=== PATIENT | male | born 1945 | race Caucasian/White ===

== ENCOUNTER 2025-07-13 17:13 | Inpatient (IN) | payer MEDICARE ==
[2025-07-13 18:58] LABS: #Basophils Less than 0.03 10x3/uL (0.0-0.2); #Eosinophils Less than 0.03 10x3/uL (0.0-0.5); #Monocytes 0.60 10x3/uL (0.0-1.1); #Neutrophils 7.90 10x3/uL (1.5-8.4); %Basophils 0.1 % (0.0-2.0); %Eosinophils 0.0 % (0.0-6.0); %Lymphocytes 7.9 % (18.0-47.0); %Monocytes 6.5 % (0.0-10.0); %Neutrophils 85.1 % (40.0-75.0); Hematocrit 34.9 % (38.8-50.0); Hemoglobin 12.1 g/dL (13.5-17.5); Mean Corpuscular Hemoglobin 32.7 pg (27.0-33.0); Mean Corpuscular Volume 94.3 fL (81.2-95.1); Platelet Count 392 10x3/uL (150-450); Red Blood Cell (RBC) Count 3.70 10x6/uL (4.32-5.72); White Blood Cell (WBC) Count 9.28 10x3/uL (3.5-10.5)
[2025-07-13 19:19] LABS: ALT (SGPT) 10 U/L (Less than 45); AST (SGOT) 22 U/L (11-34); Albumin 2.6 g/dL (3.1-4.5); Alkaline Phosphatase 78 U/L (40-110); Anion Gap 11 mmol/L (10-20); BUN (Urea Nitrogen) 25 mg/dL (8.4-25.7); Bilirubin, Total 1.8 mg/dL (0.3-1.2); Calc. Creatinine Clearance 0 mL/min (70-130); Calcium 8.5 mg/dL (7.8-10.44); Carbon Dioxide 31 mmol/L (23-31); Chloride 91 mmol/L (98-107); Globulin 4.3 g/dL (2.4-3.5); Glucose 109 mg/dL (83-110); Potassium 3.8 mmol/L (3.5-5.1); Sodium 129 mmol/L (136-145)
[2025-07-13] MEDS ORDERED: Furosemide 40 MG (4 mL) VIAL ONE (19:41)
[2025-07-13] MEDS ORDERED: Calcium Carbonate 500 MG ChewTAB PO PRN (19:56)
[2025-07-13] MEDS ORDERED: Ondansetron PF 4 MG/2 ML Vial IVP PRN (19:56)
[2025-07-13] MEDS ORDERED: Acetaminophen 325 MG TAB PO PRN (19:56)
[2025-07-13] MEDS ORDERED: Senokot S 8.6-50 MG TAB PO PRN (19:56)
[2025-07-13] MEDS ORDERED: Melatonin 3 MG TAB PO PRN (19:56)
[2025-07-13 20:38] LABS: Troponin I 0.067 ng/mL (< 0.028)
[2025-07-13 22:56] LABS: Troponin I 0.069 ng/mL (< 0.028)
[2025-07-13 23:29] LABS: Magnesium 2.1 mg/dL (1.6-2.6)
[2025-07-13] MEDS: Furosemide 20 MG (2 mL) VIAL SLOW IVP SCH (23:47)
[2025-07-14] MEDS: cefTRIAXone\\ROCEPHIN 1 GM in Sodium Chloride 0.9% 100 ML IVPB SCH (03:25)
[2025-07-14 03:49] LABS: #Basophils Less than 0.03 10x3/uL (0.0-0.2); #Eosinophils Less than 0.03 10x3/uL (0.0-0.5); #Monocytes 0.66 10x3/uL (0.0-1.1); #Neutrophils 8.84 10x3/uL (1.5-8.4); %Basophils 0.0 % (0.0-2.0); %Eosinophils 0.1 % (0.0-6.0); %Lymphocytes 8.1 % (18.0-47.0); %Monocytes 6.4 % (0.0-10.0); %Neutrophils 85.0 % (40.0-75.0); Hematocrit 36.6 % (38.8-50.0); Hemoglobin 12.8 g/dL (13.5-17.5); Mean Corpuscular Hemoglobin 32.9 pg (27.0-33.0); Mean Corpuscular Volume 94.1 fL (81.2-95.1); Platelet Count 392 10x3/uL (150-450); Red Blood Cell (RBC) Count 3.89 10x6/uL (4.32-5.72); White Blood Cell (WBC) Count 10.39 10x3/uL (3.5-10.5)
[2025-07-14 04:07] LABS: Anion Gap 15 mmol/L (10-20); BUN (Urea Nitrogen) 21 mg/dL (8.4-25.7); Calc. Creatinine Clearance 81 mL/min (70-130); Calcium 8.4 mg/dL (7.8-10.44); Carbon Dioxide 27 mmol/L (23-31); Chloride 92 mmol/L (98-107); Glucose 90 mg/dL (83-110); Potassium 2.9 mmol/L (3.5-5.1); Sodium 131 mmol/L (136-145)
[2025-07-14] MEDS ORDERED: Electrolyte Replacement Protocol 1 EACH FS PRN (06:53)
[2025-07-14] MEDS ORDERED: Azithromycin 250 MG TAB PO SCH (09:00)
[2025-07-14] MEDS: Losartan 25 MG TAB PO SCH (09:23)
[2025-07-14] MEDS: Metoprolol Succinate XL 25 MG ER.TAB PO SCH (09:24)
[2025-07-14] MEDS: Aspirin 81 mg Enteric Coated Tablet PO SCH (09:24)
[2025-07-14] MEDS: Enoxaparin 40 MG (0.4 mL) SYRINGE SC SCH (09:24)
[2025-07-14] MEDS: Furosemide 40 MG (4 mL) VIAL SLOW IVP SCH (09:25)
[2025-07-14] MEDS: Potassium Bicarbonate/Cit Ac 20 MEQ TAB PO SCH ×2 (09:45→17:54)
[2025-07-14] MEDS: Albumin 25% 25 GM (100 mL) BOT IVPB SCH (12:35)
[2025-07-14] MEDS: Bisacodyl 10 MG SUPP PR SCH (17:21)
[2025-07-14 19:21] VITALS: BMI 19.1
[2025-07-14] MEDS: Mirtazapine 15 MG TAB PO SCH (20:25)
[2025-07-14] MEDS: Furosemide 20 MG (2 mL) VIAL SLOW IVP SCH (20:25)
[2025-07-14] MEDS: Hydrocortisone Acetate 25 MG Suppository PR SCH (20:25)
[2025-07-14] MEDS: Senokot S 8.6-50 MG TAB PO SCH (20:26)
[2025-07-15 03:41] LABS: #Basophils Less than 0.03 10x3/uL (0.0-0.2); #Eosinophils Less than 0.03 10x3/uL (0.0-0.5); #Monocytes 0.42 10x3/uL (0.0-1.1); #Neutrophils 7.05 10x3/uL (1.5-8.4); %Basophils 0.1 % (0.0-2.0); %Eosinophils 0.1 % (0.0-6.0); %Lymphocytes 9.7 % (18.0-47.0); %Monocytes 5.0 % (0.0-10.0); %Neutrophils 84.6 % (40.0-75.0); Hematocrit 31.3 % (38.8-50.0); Hemoglobin 10.9 g/dL (13.5-17.5); Mean Corpuscular Hemoglobin 32.7 pg (27.0-33.0); Mean Corpuscular Volume 94.0 fL (81.2-95.1); Platelet Count 331 10x3/uL (150-450); Red Blood Cell (RBC) Count 3.33 10x6/uL (4.32-5.72); White Blood Cell (WBC) Count 8.34 10x3/uL (3.5-10.5)
[2025-07-15 03:56] LABS: Anion Gap 10 mmol/L (10-20); BUN (Urea Nitrogen) 21 mg/dL (8.4-25.7); Calc. Creatinine Clearance 79 mL/min (70-130); Calcium 8.9 mg/dL (7.8-10.44); Carbon Dioxide 32 mmol/L (23-31); Chloride 92 mmol/L (98-107); Glucose 91 mg/dL (83-110); Magnesium 2.0 mg/dL (1.6-2.6); Potassium 3.5 mmol/L (3.5-5.1); Sodium 130 mmol/L (136-145)
[2025-07-15] MEDS: Magnesium 2 GM/50 ML(in water) 2 GM in Premix 1 BAG IVPB SCH (05:19)
[2025-07-15 05:25] VITALS: BMI 18.8
[2025-07-15] MEDS: Potassium Chloride 20 MEQ in Premix 1 BAG IVPB SCH (22:50)
[2025-07-16 04:12] LABS: Magnesium 1.9 mg/dL (1.6-2.6); Potassium 3.8 mmol/L (3.5-5.1)
[2025-07-16] MEDS: Furosemide 20 MG (2 mL) VIAL SLOW IVP SCH (08:03)
[2025-07-16] MEDS: Magnesium 2 GM/50 ML(in water) 2 GM in Premix 1 BAG IVPB SCH (08:03)
[2025-07-16] MEDS: DorzolamidE/Timolol 2%/0.5% Ophth Soln 10 ml Bottle EA EYE SCH (10:31)
[2025-07-16] MEDS: Melatonin 3 MG TAB PO SCH (20:37)
[2025-07-17 05:05] LABS: Magnesium 2.2 mg/dL (1.6-2.6)
[2025-07-17 13:22] VITALS: BP 116/67; TEMP 97.5
== END 2025-07-17 14:16 | disposition hospice, home (50) | DRG 193 ==
LOC: CSHERS 17:13 → CSHTELE 19:56
PROVIDERS: ADMIT Internal Medicine; ATTEND Family Medicine
DX: J18.9 Pneumonia, unspecified organism (principal); I50.33 Acute on chronic diastolic (congestive) heart failure; I45.2 Bifascicular block; E87.1 Hypo-osmolality and hyponatremia; E44.0 Moderate protein-calorie malnutrition; Z68.1 Body mass index [BMI] 19.9 or less, adult; I42.8 Other cardiomyopathies; I5A Non-ischemic myocardial injury (non-traumatic); I11.0 Hypertensive heart disease with heart failure; N32.81 Overactive bladder; F41.9 Anxiety disorder, unspecified; F32.A Depression, unspecified; E87.6 Hypokalemia; R32 Unspecified urinary incontinence; G47.00 Insomnia, unspecified; I49.3 Ventricular premature depolarization; J47.9 Bronchiectasis, uncomplicated; G62.9 Polyneuropathy, unspecified; E78.5 Hyperlipidemia, unspecified; G89.29 Other chronic pain; D63.8 Anemia in other chronic diseases classified elsewhere; I25.10 Atherosclerotic heart disease of native coronary artery without angina pectoris; Z86.73 Personal history of transient ischemic attack (TIA), and cerebral infarction without residual deficits; Z95.5 Presence of coronary angioplasty implant and graft; Z98.890 Other specified postprocedural states; Z90.79 Acquired absence of other genital organ(s); Z87.01 Personal history of pneumonia (recurrent); Z88.2 Allergy status to sulfonamides; Z79.899 Other long term (current) drug therapy; Z79.82 Long term (current) use of aspirin; Z85.528 Personal history of other malignant neoplasm of kidney
CPT/HCPCS: 36415; 71045; 71250; 80048; 80053; 83735; 83880; 84100; 84132; 84484; 85025; 87040; 87428; 93005; 93010; 94760; 94762; 96365; 96375; J0696; J1650; J1940; J2543; J3475; J3480; P9047